=== PATIENT | male | born 1990 ===

== ENCOUNTER → 2017-02-01 | Outpatient (REF) | payer OTHER ==
[2017-02-01 13:18] LABS: % NORMAL FORMS 11 % (>=4); IMMOTILITY 47 %; NON PROGRESSIVE MOTILITY (c) 6 %; PROGRESSIVE MOTILITY (a) 47 % (>=32); TOTAL MOTILITY 53 % (>=40); TOTAL PROGRESSIVE SPERM 57.9 M/Ejac.
[2017-02-01 13:19] LABS: TOTAL FUNCTIONAL 14.3 M/Ejac.
== END ==
LOC: M LAB REF 12:49
PROVIDERS: ATTEND Obstetrics & Gynecology
DX: N46.8 Other male infertility (principal)